=== PATIENT | female | born 1960 | race Caucasian/White ===

== ENCOUNTER 2021-04-10 18:24 | Emergency (ER) | payer BC, MEDICAID ==
[~2021-04-10] VITALS: Ht 167.6 cm; Wt 68.0 kg
[2021-04-10] MEDS ORDERED: TETANUS, DIPHTHERIA, PERTUSSIS VAC/PF 0.5ML (>7YR OLD) IM ONE (19:45)
[2021-04-10] MEDS ORDERED: IBUPROFEN 600MG TABLET PO ONE (19:45)
[2021-04-10] MEDS ORDERED: AMOX-424 MT (19:53)
[2021-04-10] MEDS ORDERED: IBUP-2028 MT (19:53)
[2021-04-10 21:00] VITALS: BP 133/61
== END 2021-04-10 21:11 | disposition home or self-care (01) ==
LOC: ER 18:24
DX: S81.851A Open bite, right lower leg, initial encounter (principal); E11.9 Type 2 diabetes mellitus without complications; E78.00 Pure hypercholesterolemia, unspecified; I10 Essential (primary) hypertension; Z88.2 Allergy status to sulfonamides; Z79.899 Other long term (current) drug therapy; W54.0XXA Bitten by dog, initial encounter; Y93.89 Activity, other specified; Y92.89 Other specified places as the place of occurrence of the external cause; Y99.8 Other external cause status
CPT/HCPCS: 73590; 90471; 90715; 99283

== ENCOUNTER 2021-04-12 06:33 | Emergency (ER) | payer BC, MEDICAID ==
[~2021-04-12] VITALS: Ht 165.1 cm; Wt 70.0 kg
[~2021-04-12 06:33] MED LIST: AMOX-424 MT; IBUP-2028 MT
[2021-04-12 07:39] VITALS: BP 128/58
== END 2021-04-12 07:42 | disposition home or self-care (01) ==
LOC: ER 06:33
DX: S81.851A Open bite, right lower leg, initial encounter (principal); Z13.9 Encounter for screening, unspecified; Z48.00 Encounter for change or removal of nonsurgical wound dressing; W54.0XXA Bitten by dog, initial encounter; Y93.89 Activity, other specified; Y92.89 Other specified places as the place of occurrence of the external cause; Y99.8 Other external cause status
CPT/HCPCS: 99283